=== PATIENT | male | born 1985 | race Two or more races ===

== ENCOUNTER 2017-10-15 07:00 | Day surgery (SDC) | payer OTHER ==
[2017-10-15] MEDS ORDERED: fentaNYL CITRATE/PF 100 MCG/2 ML AMP ONE ×2 (07:13→07:48)
[2017-10-15] MEDS ORDERED: SIMETHICONE 40 MG/0.6 ML ML ONE (07:13)
[2017-10-15] MEDS ORDERED: MIDAZOLAM HCL 5 MG/5 ML VIAL ONE (07:13)
[2017-10-15 15:22] VITALS: BP_SYST 110
== END 2017-10-15 10:30 | disposition home or self-care (01) ==
LOC: SMU 07:00 → SDS 07:00
PROVIDERS: ATTEND Surgery
DX: K64.4 Residual hemorrhoidal skin tags (principal); K64.8 Other hemorrhoids; K60.2 Anal fissure, unspecified; Z98.890 Other specified postprocedural states
CPT/HCPCS: 45378; J2250; J3010

== ENCOUNTER 2017-11-27 12:01 | Day surgery (SDC) | payer OTHER ==
[~2017-11-27] VITALS: Ht 188 cm; Wt 124.7 kg
[2017-11-27] MEDS ORDERED: SEVOFLURANE 15 MIN GAS INH ONE (14:05)
[2017-11-27] MEDS ORDERED: KETOROLAC TROMETHAMINE 30 MG VIAL IVP ONE ×2 (14:05→15:15)
[2017-11-27] MEDS ORDERED: DEXAMETHASONE SOD PHOSPHATE 4 MG/ML VIAL IVP ONE (14:05)
[2017-11-27] MEDS ORDERED: LIDOCAINE 1% 10 MG/ML, 20 ML MDV INJ ONE (14:05)
[2017-11-27] MEDS ORDERED: SUCCINYLCHOLINE CHLORIDE 20 MG/ML(QUELICIN) IVP ONE (14:05)
[2017-11-27] MEDS ORDERED: ONDANSETRON HCL 4 MG/2 ML VIAL IVP ONE ×2 (14:05→15:15)
[2017-11-27] MEDS ORDERED: LR 1,000 ML IV.SOLN IV ONE (14:05)
[2017-11-27] MEDS ORDERED: MEPERIDINE HCL/PF 100 MG/ML AMP IM ONE (14:05)
[2017-11-27] MEDS ORDERED: BUPIVACAINE /PF 0.25% 30 ML VIAL INJ ONE (14:05)
[2017-11-27] MEDS ORDERED: MIDAZOLAM HCL 5 MG/5 ML VIAL IVP ONE (14:05)
[2017-11-27] MEDS ORDERED: PROPOFOL 200MG/ 20ML VIAL (DIPRIVAN) IV ONE (14:05)
[2017-11-27] MEDS ORDERED: fentaNYL CITRATE 250 MCG/5 ML AMP IV ONE (14:05)
[2017-11-27] MEDS ORDERED: NS IRRIG SOLN 1000 ML IR ONE (14:05)
[2017-11-27] MEDS ORDERED: MORPHINE 4 MG/ML INJ. SYRINGE IVP PRN (14:15)
[2017-11-27] MEDS ORDERED: ONDANSETRON HCL 4 MG/2 ML VIAL IVP PRN (14:15)
[2017-11-27] MEDS ORDERED: ACETAMINOPHEN/CODEINE 300 MG-30 MG TABLET PO PRN (14:15)
[2017-11-27] MEDS ORDERED: NALOXONE HCL 0.4 MG/ML AMP (NARCAN) IVP ONE (15:15)
[2017-11-27] MEDS ORDERED: MEPERIDINE HCL/PF 25 MG/ML DISP.SYRIN IVP PRN (15:15)
[2017-11-27] MEDS ORDERED: HYDROmorphone 1 MG INJ. 1 MG/ML AMPUL IVP PRN (15:15)
[2017-11-27] MEDS ORDERED: MIDAZOLAM HCL 5 MG/5 ML VIAL IVP PRN (15:15)
[2017-11-27] MEDS ORDERED: fentaNYL CITRATE/PF 100 MCG/2 ML AMP IVP PRN (15:15)
[2017-11-27] MEDS ORDERED: MEPERIDINE HCL/PF 25 MG/ML DISP.SYRIN ONE (15:46)
[2017-11-27 17:17] VITALS: BP_SYST 123
== END 2017-11-27 17:40 | disposition home or self-care (01) ==
LOC: SDS 12:01
PROVIDERS: ATTEND Surgery
DX: K64.8 Other hemorrhoids (principal); F17.200 Nicotine dependence, unspecified, uncomplicated; E66.9 Obesity, unspecified; Z68.35 Body mass index [BMI] 35.0-35.9, adult
CPT/HCPCS: 46255; 88305; J0330; J1100; J1885; J2001; J2175 ×2; J2250; J2405; J2704; J3010; J3490; J7120